=== PATIENT | male | born 1960 | race Caucasian/White ===

== ENCOUNTER → 2022-01-20 | Outpatient (CLI) | payer BC ==
[2022-01-20 16:35] LABS: Microalb/Creat Ratio UR, Rand 165.957 mg/g (0.000-30.000)
== END | disposition home or self-care (01) ==
LOC: LAB 12:56 → LAB SHORT 12:56
PROVIDERS: Family Medicine
DX: E11.40 Type 2 diabetes mellitus with diabetic neuropathy, unspecified (principal)
CPT/HCPCS: 82043; 82570

== ENCOUNTER 2023-05-17 06:19 | Day surgery (SDC) | payer MEDICARE, BC ==
[2023-05-17] VITALS (19 sets, daily range): BP systolic 144–181; BP diastolic 71–100
[~2023-05-17] VITALS: Ht 188 cm; Wt 117.0 kg
[~2023-05-17 06:19] MED LIST: ASPI325 PO; BUPRENORPHIN-N1 EAC1 SL; COREG PO; Crestor20 MG PO; HUMALOG KW100 UNIT/1; ICOSAPENT ETHYL1 GM PO; INSULANI SC; JARDIANCE25 MG PO; LOSA50 PO; NITR.4SL SL; TRAZ50 PO
[2023-05-17] MEDS ORDERED: FISH OIL 1,2001 EAC7 PO (06:37)
--- NOTE | 2023-05-17 08:07 | NUR ---
05/17/23 0807 Cuca Bolton PRIOR TO PREPPING PATIENTS SKIN, NOTED IRRITATION AND REDNESS IN THE RIGHT GROIN CONSISTENT WITH THE AREA SHAVED IN THE PREOP SETTING. NOTIFIED.
--- NOTE | 2023-05-17 17:40 | NUR ---
SHIFT SUMMARY NEW ADMIT TO UNIT FROM PACU POD [address] ROBLES. ALERT, ORIENTED, COOPERATIVE. WEANED O2 TO ROOM AIR. HIGH SBP, OBTAINED ORDER FOR HOSP CONSULT AND PRN HYDRALAZINE. DR OWUSU CONSULTED ON PATIENT AND PLACED ORDERS. TOLERATING ADA DIET, COVERED BLOOD SUGAR WITH LOW SS PER EMAR. VOIDING WELL. RIGHT HIP WITH INCISION WNL. PRINEO DRESSING INTACT. WORKED WITH PT, AMBULATED IN HALLS WITH FWW AND GAIT BELT. PAIN CONTROLLED WITH PO AND SCHEDULED MEDS PER EMAR. SPOUSE ATTENTIVE AT BEDSIDE. PLAN TO DISCHARGE TOMORROW AFTER CLEARING PHYSICAL THERAPY.
--- NOTE | 2023-05-17 21:20 | NUR ---
BLOOD SUGAR PT HAD BS OF 352, DR NOTIFIED. NEW ORDER OBTAINED. PT AGREEABLE TO NEW ORDER. WILL GIVE PER EMAR.
[2023-05-18 00:24] VITALS: BP 143/74
--- NOTE | 2023-05-18 04:14 | NUR ---
SHIFT SUMMARY POD 1 R GUILLERMO PT IS A&O X4, PLEASENT, CALLS APPROPRITELY. VOIDING AND PASSING GAS. INCISION TO R HIP DRESSED IN PRINEO DRESSING, C/D/I. PT HAS BASELINE N/T IN FEET FROM PREVIOUS BACK INJURIES/SURGERIES. HAS NO MORE N/T THAN BASELINE RIGHT NOW. ABLE TO WIGGLE TOES AND HAS ROM. COLD PACK ON ALL NIGHT. PLAN FOR DISCHARGE TODAY. NO OTHER CONCERNS AT THIS TIME. CALL LIGHT WITHIN REACH.
[2023-05-18 06:06] VITALS: BP 166/82
[2023-05-18 06:19] LABS: BASOPHILS ABSOLUTE AUTO 0.02 K/mm3 (0.00-0.23); BASOPHILS PERCENT AUTO 0 % (0-2); EOSINOPHILS PERCENT AUTO 0 % (0-6); Hematocrit 46.4 % (37.0-53.0); Hemoglobin 15.2 g/dL (13.5-17.5); IMMATURE GRAN ABSOLUTE AUTO 0.07 K/mm3 (0.00-0.10); IMMATURE GRAN PERCENT AUTO 1 % (0-1); LYMPHOCYTES ABSOLUTE AUTO 1.52 K/mm3 (0.84-5.20); LYMPHOCYTES PERCENT AUTO 13 % (21-46); MONOCYTES ABSOLUTE AUTO 1.29 K/mm3 (0.16-1.47); MONOCYTES PERCENT AUTO 11 % (4-13); Mean Corpuscular HGB 29.6 pg (26.0-34.0); Mean Corpuscular HGB Conc 32.8 g/dL (31.5-36.5); Mean Corpuscular Volume 90 fL (80-100); Mean Platelet Volume 9.6 fL (9.1-12.4); NEUTROPHILS PERCENT AUTO 75 % (41-73); Platelet Count 219 K/mm3 (150-400); RDW Coefficient Variation 14.7 % (11.7-14.2); RDW Standard Deviation 48.1 fL (35.1-46.3); Red Blood Cell Count 5.13 M/mm3 (4.30-5.90)
[2023-05-18 06:37] LABS: Bun/Creatinine Ratio 21.6 (12.0-20.0); Calcium, Blood 8.3 mg/dL (8.5-10.1); Creatinine, Blood 1.62 mg/dL (0.60-1.20); Magnesium, Blood 2.3 mg/dL (1.6-2.4); Potassium, Blood 5.1 mmol/L (3.5-5.5)
[2023-05-18 07:38] VITALS: BP 166/88
[2023-05-18 10:00] VITALS: BP 141/76
--- NOTE | 2023-05-18 11:01 | NUR ---
DISCHARGE SUMMARY PT A&OX4, VSS/RA, BEA PO, VOIDING, AMB SBA FWW, UP TO CHAIR, PAIN MANAGED, IV DC'D. DC INS PROVIDED. PT REP UNDERSTANDING THOSE INSTRUCTIONS INCLUDING FU WITH SURGEON, REINFORCE PRINEO DRESSING IF NEC, WHEN TO CALL THE SURGEON. LEFT FLOOR VIA WC WITH BUSINESS RISK ANALYST TO GO HOME WITH , WITH ALL PERSONAL POSSESSIONS INCLUDING DC PACKET AND 1 AQUACEL.
== END 2023-05-18 10:30 | disposition home or self-care (01) ==
LOC: SURS 06:19 → ORSCMMR 06:19 → ORD 07:30 → SURS 11:07 → ORSCMMR 05-18 10:30
PROVIDERS: Orthopaedic Surgery
PROC: 0SR90JA Replacement of Right Hip Joint with Synthetic Substitute, Uncemented, Open Approach (ICD-10-PCS; principal; 2023-05-17 07:30)
DX: M16.11 Unilateral primary osteoarthritis, right hip (principal); I10 Essential (primary) hypertension; I25.10 Atherosclerotic heart disease of native coronary artery without angina pectoris; E11.9 Type 2 diabetes mellitus without complications; Z79.899 Other long term (current) drug therapy; Z79.4 Long term (current) use of insulin; Z79.84 Long term (current) use of oral hypoglycemic drugs
CPT/HCPCS: 36415; 72170; 80048; 82947; 83735; 85025; 94760; 97110; 97116; 97162; A9270; C1713; C1776; J0171; J0360; J0690; J0735; J1100; J1170; J1815; J1885; J2405; J2704; J2795; J3010; J7120

== ENCOUNTER 2023-09-10 07:30 | Inpatient (IN) | payer MEDICARE, BC ==
[~2023-09-10] VITALS: Ht 185.4 cm; Wt 115.1 kg
[2023-09-10] VITALS (21 sets, daily range): BP systolic 105–145; BP diastolic 58–92
[~2023-09-10 07:30] MED LIST changes: +FISH OIL 1,2001 EAC7 PO
[2023-09-10 12:59] LABS: Bun/Creatinine Ratio 26.7 (12.0-20.0); Creatinine, Blood 1.05 mg/dL (0.60-1.20); Potassium, Blood 4.7 mmol/L (3.5-5.5)
[2023-09-11 04:54] VITALS: BP 118/74
[2023-09-11 05:46] LABS: BASOPHILS ABSOLUTE AUTO 0.01 K/mm3 (0.00-0.23); BASOPHILS PERCENT AUTO 0 % (0-2); EOSINOPHILS PERCENT AUTO 0 % (0-6); Hematocrit 45.7 % (37.0-53.0); Hemoglobin 14.5 g/dL (13.5-17.5); IMMATURE GRAN ABSOLUTE AUTO 0.05 K/mm3 (0.00-0.10); IMMATURE GRAN PERCENT AUTO 0 % (0-1); LYMPHOCYTES PERCENT AUTO 12 % (21-46); MONOCYTES ABSOLUTE AUTO 0.62 K/mm3 (0.16-1.47); MONOCYTES PERCENT AUTO 6 % (4-13); Mean Corpuscular HGB 27.4 pg (26.0-34.0); Mean Corpuscular HGB Conc 31.7 g/dL (31.5-36.5); Mean Corpuscular Volume 86 fL (80-100); Mean Platelet Volume 9.5 fL (9.1-12.4); NEUTROPHILS ABSOLUTE AUTO 9.26 K/mm3 (1.96-9.15); NEUTROPHILS PERCENT AUTO 82 % (41-73); Platelet Count 232 K/mm3 (150-400); RDW Standard Deviation 40.2 fL (35.1-46.3); White Blood Cell Count 11.24 K/mm3 (4.00-11.30)
[2023-09-11 06:17] LABS: Bun/Creatinine Ratio 27.3 (12.0-20.0); Calcium, Blood 8.1 mg/dL (8.5-10.1); Creatinine, Blood 1.61 mg/dL (0.60-1.20); Potassium, Blood 5.3 mmol/L (3.5-5.5)
[2023-09-11 07:22] VITALS: BP 117/76
[2023-09-11] MEDS ORDERED: OXYC5 PO (10:28)
== END 2023-09-11 11:04 | disposition home or self-care (01) | DRG 468 ==
LOC: SURS 11:29
PROVIDERS: Anesthesiology; ADMIT Orthopaedic Surgery
PROC: 0SP909Z Removal of Liner from Right Hip Joint, Open Approach (ICD-10-PCS; 2023-09-10)
PROC: 0SRR01A Replacement of Right Hip Joint, Femoral Surface with Metal Synthetic Substitute, Uncemented, Open Approach (ICD-10-PCS; principal; 2023-09-10 07:30)
DX: T84.020A Dislocation of internal right hip prosthesis, initial encounter (principal); E78.5 Hyperlipidemia, unspecified; I10 Essential (primary) hypertension; E66.9 Obesity, unspecified; I25.10 Atherosclerotic heart disease of native coronary artery without angina pectoris; E11.40 Type 2 diabetes mellitus with diabetic neuropathy, unspecified; G89.29 Other chronic pain; M19.90 Unspecified osteoarthritis, unspecified site; Z95.5 Presence of coronary angioplasty implant and graft; Z79.82 Long term (current) use of aspirin; Z79.4 Long term (current) use of insulin; Z68.33 Body mass index [BMI] 33.0-33.9, adult; Z01.812 Encounter for preprocedural laboratory examination; M16.11 Unilateral primary osteoarthritis, right hip; T84.090A Other mechanical complication of internal right hip prosthesis, initial encounter; M25.551 Pain in right hip; Z96.641 Presence of right artificial hip joint
CPT/HCPCS: 36415; 72170; 80048; 82947; 83735; 85025; 97110; 97116; 97161; 97530; A9270; C1776; J0171; J0690; J0735; J1100; J1815; J1885; J2250; J2405; J2704; J2795; J3010; J7120

== ENCOUNTER → 2024-08-18 | Outpatient (CLI) | payer MEDICARE, BC ==
[~2024-08-18] MED LIST changes: +OXYC5 PO
[2024-08-18 13:25] LABS: U Amphetamine Screen Not Detected; U Barbituate Screen Not Detected; U Benzodiazapine Screen Not Detected; U Buprenorphine Screen DETECTED; U Cannabinoids Screen Not Detected; U Cocaine Screen Not Detected; U Methadone Screen Not Detected; U Methamphetamine Screen Not Detected; U Opiates Screen Not Detected; U Oxycodone Screen Not Detected; U Phencyclidine Screen Not Detected
[2024-08-21 16:38] LABS: BUPRENORPHINE GLUC,URN,QUANT 95 ng/mL; BUPRENORPHINE,URN,QUANT 4 ng/mL; NALOXONE,URN,QUANT <100 ng/mL; NORBUPRENORPHINE GLUC,UR,QUANT 264 ng/mL; NORBUPRENORPHINE,URN,QUANT 106 ng/mL
== END ==
LOC: LAB SHORT 10:53 → LAB 10:53
PROVIDERS: Student in an Organized Health Care Education/Training Program
DX: Z51.81 Encounter for therapeutic drug level monitoring (principal); Z79.891 Long term (current) use of opiate analgesic
CPT/HCPCS: G0480

== ENCOUNTER 2024-08-23 10:42 | Emergency (ER) | payer MEDICARE, BC ==
[~2024-08-23] VITALS: Ht 190.5 cm; Wt 117.9 kg
[2024-08-23 11:21] VITALS: BP 186/95
[2024-08-23 12:11] LABS: BASOPHILS ABSOLUTE AUTO 0.04 K/mm3 (0.00-0.23); BASOPHILS PERCENT AUTO 1 % (0-2); EOSINOPHILS ABSOLUTE AUTO 0.12 K/mm3 (0.00-0.68); EOSINOPHILS PERCENT AUTO 3 % (0-6); Hematocrit 47.8 % (37.0-53.0); Hemoglobin 15.9 g/dL (13.5-17.5); IMMATURE GRAN ABSOLUTE AUTO 0.01 K/mm3 (0.00-0.10); IMMATURE GRAN PERCENT AUTO 0 % (0-1); LYMPHOCYTES PERCENT AUTO 29 % (21-46); MONOCYTES ABSOLUTE AUTO 0.43 K/mm3 (0.16-1.47); MONOCYTES PERCENT AUTO 9 % (4-13); Mean Corpuscular HGB 30.5 pg (26.0-34.0); Mean Corpuscular HGB Conc 33.3 g/dL (31.5-36.5); Mean Corpuscular Volume 92 fL (80-100); Mean Platelet Volume 9.6 fL (9.1-12.4); NEUTROPHILS ABSOLUTE AUTO 2.82 K/mm3 (1.96-9.15); NEUTROPHILS PERCENT AUTO 59 % (41-73); Platelet Count 204 K/mm3 (150-400); RDW Coefficient Variation 12.9 % (11.7-14.2); Red Blood Cell Count 5.22 M/mm3 (4.30-5.90); White Blood Cell Count 4.82 K/mm3 (4.00-11.30)
[2024-08-23 12:30] LABS: Albumin, Blood 3.5 g/dL (3.4-5.0); Bilirubin, Total 0.5 mg/dL (0.1-1.0); Bun/Creatinine Ratio 24.1 (12.0-20.0); Calcium, Blood 9.2 mg/dL (8.5-10.1); Creatinine, Blood 1.37 mg/dL (0.60-1.20); Globulin, Blood 3.6 g/dL (2.2-4.0); Total Protein, Blood 7.1 g/dL (6.4-8.2)
[2024-08-23] MEDS ORDERED: LIDO700A20 TOP (14:46)
== END 2024-08-23 15:00 | disposition home or self-care (01) ==
LOC: ER 10:42
PROVIDERS: Physician Assistant
DX: M54.14 Radiculopathy, thoracic region (principal); Z79.82 Long term (current) use of aspirin; Z79.4 Long term (current) use of insulin; Z79.84 Long term (current) use of oral hypoglycemic drugs; Z79.899 Other long term (current) drug therapy
CPT/HCPCS: 74177; 80053; 83690; 85025; 99284-25; Q9967

== ENCOUNTER → 2024-09-21 | Outpatient (CLI) | payer MEDICARE, BC ==
[~2024-09-21] MED LIST changes: +LIDO700A20 TOP
[2024-09-21 12:55] LABS: BASOPHILS ABSOLUTE AUTO 0.04 K/mm3 (0.00-0.23); BASOPHILS PERCENT AUTO 1 % (0-2); EOSINOPHILS ABSOLUTE AUTO 0.09 K/mm3 (0.00-0.68); EOSINOPHILS PERCENT AUTO 2 % (0-6); Hematocrit 53.6 % (37.0-53.0); Hemoglobin 17.7 g/dL (13.5-17.5); IMMATURE GRAN ABSOLUTE AUTO 0.01 K/mm3 (0.00-0.10); IMMATURE GRAN PERCENT AUTO 0 % (0-1); LYMPHOCYTES ABSOLUTE AUTO 1.46 K/mm3 (0.84-5.20); LYMPHOCYTES PERCENT AUTO 27 % (21-46); MONOCYTES ABSOLUTE AUTO 0.45 K/mm3 (0.16-1.47); MONOCYTES PERCENT AUTO 8 % (4-13); Mean Corpuscular HGB 29.4 pg (26.0-34.0); Mean Corpuscular Volume 89 fL (80-100); Mean Platelet Volume 9.2 fL (9.1-12.4); NEUTROPHILS ABSOLUTE AUTO 3.39 K/mm3 (1.96-9.15); NEUTROPHILS PERCENT AUTO 62 % (41-73); Platelet Count 236 K/mm3 (150-400); RDW Coefficient Variation 12.7 % (11.7-14.2); RDW Standard Deviation 41.4 fL (35.1-46.3); Red Blood Cell Count 6.03 M/mm3 (4.30-5.90); White Blood Cell Count 5.44 K/mm3 (4.00-11.30)
[2024-09-21 12:58] LABS: Albumin, Blood 3.7 g/dL (3.4-5.0); Albumin/Globulin Ratio 0.9 (0.8-1.8); Bilirubin, Total 0.4 mg/dL (0.1-1.0); Bun/Creatinine Ratio 21.4 (12.0-20.0); Calcium, Blood 9.1 mg/dL (8.5-10.1); Creatinine, Blood 1.59 mg/dL (0.60-1.20); Globulin, Blood 4.1 g/dL (2.2-4.0); Potassium, Blood 4.9 mmol/L (3.5-5.5); Total Protein, Blood 7.8 g/dL (6.4-8.2)
== END ==
LOC: LAB SHORT 12:38 → LAB 12:38
DX: R10.9 Unspecified abdominal pain (principal)
CPT/HCPCS: 80053; 83690; 85025

== ENCOUNTER 2024-11-13 07:52 | Day surgery (SDC) | payer MEDICARE, BC ==
[~2024-11-13] VITALS: Ht 182.9 cm; Wt 119.0 kg
[2024-11-13] VITALS (14 sets, daily range): BP systolic 97–158; BP diastolic 67–119
[~2024-11-13 07:52] MED LIST changes: +ASPI81CH PO; +EZETIMIBE10 M6 PO; +JARDIANCE10 MG PO; +Lactated Ringer's 1,000 ML IV SCH
[2024-11-13] MEDS ORDERED: propofoL 40 ML IV ONE (08:52)
[2024-11-13] MEDS ORDERED: Midazolam HCl 1MG / ML 2ML Vial ONE (09:01)
--- NOTE | 2024-11-13 09:07 | NUR ---
11/13/24 0907 Chencho Carson CONFIRMED AND REVIEWED H&P, MEDCICATIONS, ALLERGIES, MEDICAL HISTORY, RESPIRATORY HISTORY, VITAL SIGNS, 3-LEAD EKG, CONSENTS, AND PHYSICIAN ORDERS. PATIENT CONFIRMS NPO STATUS AND AGREES WITH SCHEDULED PROCEDURE. MONITOR INTACT WITH CONTINUOUS PULSE OXIMETRY, CAPNOGRAPHY, 3-LEAD EKG, INTERMITTENT BP. SUPPLEMENTAL O2 TO BE TITRATED THROUGHOUT PROCEDURE TO MAINTAIN O2 SATURATION ABOVE 90%. PATIENT DETERMINED TO BE ASA APPROPRIATE FOR PROPOFOL SEDATION PRIOR TO START OF PROCEDURE BY DR. PEREZ
--- NOTE | 2024-11-13 09:41 | NUR ---
Discharge instructions reviewed with patient. Patient verbalizes understanding. Copy given to patient to take home. Patient States Post-Procedure ride home has been arranged. Discharged via wheelchair to private car for ride home.
== END 2024-11-13 09:42 | disposition home or self-care (01) ==
LOC: ORSCMMR 07:52 → ORD 08:30 → ORSCMMR 09:42
PROVIDERS: Internal Medicine Gastroenterology
PROC: 0DJD8ZZ Inspection of Lower Intestinal Tract, Via Natural or Artificial Opening Endoscopic (ICD-10-PCS; principal; 2024-11-13 08:30)
DX: Z12.11 Encounter for screening for malignant neoplasm of colon (principal); Z83.719 Family history of colon polyps, unspecified; E11.9 Type 2 diabetes mellitus without complications; I10 Essential (primary) hypertension; Z79.4 Long term (current) use of insulin; Z79.899 Other long term (current) drug therapy; Z79.84 Long term (current) use of oral hypoglycemic drugs; E66.9 Obesity, unspecified; Z68.35 Body mass index [BMI] 35.0-35.9, adult
CPT/HCPCS: 82947; J2250; J2704; J7120

== ENCOUNTER 2024-12-26 07:40 | Day surgery (SDC) | payer MEDICARE, BC ==
[~2024-12-26] VITALS: Ht 185.4 cm; Wt 114.0 kg
[2024-12-26] VITALS (12 sets, daily range): BP systolic 100–167; BP diastolic 68–106
[~2024-12-26 07:40] MED LIST changes: +B COMPLEX VITAMIN; +DEPO-TESTO200 MG/1 M IM; +FISH OIL 1,0001 EA10 PO; -Lactated Ringer's 1,000 ML IV SCH; +MULTIVITAMIN; +TOCO1000 PO; +Vitamin D1000 UNI1 PO
[2024-12-26] MEDS ORDERED: Verapamil HCL 2.5 MG/ML 2ML Injection ONE (07:54)
[2024-12-26] MEDS ORDERED: NS 250 ML IV ONE (07:54)
[2024-12-26] MEDS ORDERED: Nitroglycerin 2 MG/20 ML BTL ONE (07:54)
[2024-12-26] MEDS ORDERED: NS 1,000 ML IV ONE ×2 (07:54→07:59)
[2024-12-26] MEDS ORDERED: Heparin Sodium 1000 Units/ML 10ML MDV ONE ×2 (07:55→09:21)
[2024-12-26] MEDS ORDERED: Midazolam HCl 1MG / ML 2ML Vial ONE (08:02)
[2024-12-26] MEDS ORDERED: Aspirin 81 MG Chew ONE (08:30)
[2024-12-26] MEDS ORDERED: FentaNYL Citrate 50 MCG/ML 2 ML Injection ONE (08:55)
--- NOTE | 2024-12-26 09:48 | NUR ---
PATIENT TO RECOVERY ROOM AT 0940. PT AWAKE AND ALERT, DENIES COMPLAINTS. RIGHT TR BAND SITE REVIEWED WITH PRISCILLA HAND. SITE WNL. PT DENIES NUMBNESS/TINGLING OF HAND, CAP REFILL BRISK. DR SAHU UPDATING PATIENT NOW. WRIST IMMOBILIZER IN PLACE.
--- NOTE | 2024-12-26 10:34 | NUR ---
PT TOLERATED BREAKFAST/FLUIDS. DENIES COMPLAINTS. 2 CC AIR REMOVED FROM TR BAND AT 1030 W/O ISSUES. RIGHT RADIAL SITE WNL.
--- NOTE | 2024-12-26 11:04 | NUR ---
Received report from DEBRA Powell and assuming care. pt sitting up in recliner. TR band in place. Last 3cc air removed. no bleeding or hematoma. Pt to recovery room. Pt up to BR, steady on feet.
--- NOTE | 2024-12-26 11:12 | NUR ---
Pt back to recliner, small amound of bleeding noted under TR band. 5 cc air replaced and no new bleeding noted. skin is soft below and above TR band.
--- NOTE | 2024-12-26 11:43 | NUR ---
TR BAND FULLY DELFATED. NO BLEEDING OR HEMATOMA NOTED. PT FOLLOWING R WRIST PRECAUTIONS DIRECTED. SPOUSE AT BEDSIDE. DENIES OTHER NEEDS.
--- NOTE | 2024-12-26 12:40 | NUR ---
Pt and spouse verbalize d/c instructions. Pt dressed, No bleeding to R radial. TR band removed and replaced with cloth dot dressing. IV D/C catheter intact. Pt wheeled out of dept to spouse vehicle.
== END 2024-12-26 12:35 | disposition home or self-care (01) ==
LOC: MHTC 07:40
DX: I25.10 Atherosclerotic heart disease of native coronary artery without angina pectoris (principal); I12.9 Hypertensive chronic kidney disease with stage 1 through stage 4 chronic kidney disease, or unspecified chronic kidney disease; E11.22 Type 2 diabetes mellitus with diabetic chronic kidney disease; N18.9 Chronic kidney disease, unspecified; E78.5 Hyperlipidemia, unspecified; E66.01 Morbid (severe) obesity due to excess calories; Z88.8 Allergy status to other drugs, medicaments and biological substances; Z79.82 Long term (current) use of aspirin; Z79.899 Other long term (current) drug therapy; Z95.5 Presence of coronary angioplasty implant and graft; Z88.5 Allergy status to narcotic agent
CPT/HCPCS: 76937; 85347; 93458; 93571; 99152; 99153; A9270; C1769; C1887; C1894; J1644; J2250; J3010; J7030; J7050; Q9967